=== PATIENT | female | born 1995 | race Caucasian/White ===

== ENCOUNTER 2016-10-07 07:24 | Inpatient (IN) ==
--- NOTE | 2016-10-07 05:20 | OB/GYN History & Physical ---
Date of Encounter: 10/07/16 Time of Encounter: 05:19 Assessment and Plan (1) 40 weeks gestation of Current visit: Yes Status: Acute Pt is a F at 40+2 weeks with History of SVT Presented 4 days ago outpatient, with SVE: 3 cm/75%/-2/vertex SVE on admit this AM: 4%/90%/ballotable History of SVT: [facility] recommends epidural analgesia to prevent increase of catecholamines in event pt enters labor Follows with midwifes as outpatient I examined this patient and my medical decision-making was reviewed with the Resident Physician. I agree with the documented findings, disposition and treatment plan as described except to the extent set forth below. Allan Samson CNM Admit to labor and delivery for labor Routine labor management Patient may have iv pain medication and/or epidural upon request for pain control. GBS negative. Consider AROM for labor augmentation Anticipate vaginal delivery POC per consult with Dr Medrano. (2) Non-stress test reactive Current visit: Yes Status: Acute Will monitor FHT Results pending upon 20-min evaluation (3) Personal history of supraventricular tachycardia Current visit: Yes Status: Acute History of SVT diagnosed 7 years ago, with no syncopal episodes in past Endorses intermittent palpitations Was seen by [facility] for evaluation of SVT - 06/28/16 recommendation by [facility] reviewed: recommendation for epidural analgesia Reviewed 05/19/16 Echocardiogram Impressions- Normal LV systolic function, LVEF 60%. History of Present Illness Chief complaint: Labor Evaluation HPI: Ms. Crane is a 21 year old female at 40 weeks and 2 days who presents to labor and delivery for labor evaluation. Pt and FOB endorse contractions every 5 minutes. Reports active movement. She endorses a light, limited vaginal bleeding episode and vaginal discharge. She denies leakage of fluid and does not believe she has ruptured her membranes. She receives care with midwives as an oupatient. Was seen at outpatient four days ago, was 3/75/-2/ vertex on presentation on 10/03/16 and vertex by US on 09/20/16. Pt has a history of supraventricular tachycardia diagnosed at age 14 prior to wisdom teeth extraction. She feels as if her heart "skips a beat every time I have a contraction". Endorses intermittent palpitation in anterior chest during . [place] dizzy yesterday, which resolved with additional fluid intake. Has never experienced a syncopal episode. No chest pain, SOB, or unexplained diaphoresis during . Pt had a normal EKG 4 weeks prior to this admission, which was normal. She was seen by MFM for SVT, who recommended epidural analgesia. labs: A POSITIVE/GBS Negative/ Heb B Nonreactive/ Rubella Immune/ Varicella IgG positive/ All other serologies negative. Past Med Surg Social Fam HX - Past Medical History Medical history: SVT Psychiatric history: no psych history - Past Surgical History Surgical History: no surgical history - Social History Smoking Status: Never smoker Alcohol use: none Drug use: none - Family History Maternal Grandmother Adopted: No Hx Family Cardiac Disorders: Yes Hx Family Respiratory Disorders: No Hx Family Cancer: No Hx Family GI Disorders: No Hx Family Genitourinary Disorders: No Hx Family Endocrine Disorder: Yes (dm) Hx Family Musculoskeletal Disorders: No Hx Family Neuromuscular Disorders: No Hx Family Neurologic Disorders: No Hx Family HEENT Disorders: No Hx Family Autoimmune Disorders: No Hx Family Reproductive Disorders: No Hx Family Psychosocial Disorders: No Hx Family Medical Disorders: No Obstetrical History - Pregnancies : 1 Para: 0 Medications and Allergies Tablet 1 tab PO DAILY 10/07/16 [History] Allergies Amoxicillin Allergy (Verified 10/07/16 04:15) Rash Penicillins Allergy (Verified 10/07/16 04:15) Rash Exam - Constitutional Constitutional: well developed, well nourished, other (standing upright and pacing, cooperative) - HEENT HEENT: EOMI, Normocephaly - Lungs Respiratory exam: CTAB (accessory muscle use.No wheezes. No respiratory distress. ) - Cardiovascular Cardiovascular exam: RRR - Abdomen Abdomen: Present: gravid, non tender - Cervix Dilation: 4 (performed by RN on intake on admission) Effacement: 90 Station: 0 (ballotable) Results All other labs normal. US - abdomen: report reviewed (06/28/16 Second trimester detailed U/S with transvaginal scan: No anomalies visualized. ), other (05/19/16 Echocardiogram Impressions: Normal LV systolic function, LVEF 60%. Normal left ventricular diastolic function. Normal right ventricular size and function. No significant valvular dysfunction. No evidence of pulmonary hypertension. Left Ventricular Wall Motion: Rest Echo Findings All wall segments showed normal motion. )
[~2016-10-07 07:24] MED LIST: Famotidine 20 MG/2 ML VIAL IVP PRN; Naloxone 0.4 MG/ML INJ IVP PRN
[2016-10-07] MEDS ORDERED: *HR* Nalbuphine 20 MG/ML AMPUL IVP PRN (07:26)
[2016-10-07] MEDS ORDERED: Ringers Solution, Lactated 1,000 ML IVC SCH (07:30)
[2016-10-07] MEDS ORDERED: Ringers Solution, Lactated 1,000 ML ONE (07:35)
[2016-10-07 07:44] LABS: Basophils % 0.2 %; Eosinophils % 0.2 %; Hematocrit 40.7 % (35.3-44.9); Hemoglobin 13.4 g/dL (11.5-15.4); Immature Granulocytes % 0.4 % (0-4); Lymphocytes % 5.9 %; Mean Corpuscular HGB Conc 32.9 g/dL (31.6-35.5); Mean Corpuscular Volume 85.1 fL (83.0-100.0); Mean Platelet Volume 9.5 fL (9.4-12.4); Monocytes # 0.4 K/mcL (0.0-1.3); Monocytes % 2.6 %; Neutrophils # 14.9 K/mcL (1.6-8.9); Platelet Count 245 K/mcL (140-400); Red Blood Count 4.78 M/mcL (3.82-4.97); Red Cell Distribution Width 13.7 % (11.5-14.5); Segmented Neutrophils % 90.7 %
[2016-10-07] MEDS ORDERED: Epidural Premix (fent/bupiv) 110 ML EP ONE (07:50)
--- NOTE | 2016-10-07 08:35 | Anesthesia Evaluation PreOp ---
Date of Encounter: 10/07/16 Time of Encounter: 08:04 - Past History Planned Operation: vaginal del, induction Cardiac History: Arrhythmia, Other (SVT in past no hospitalizations, cardiac workup neg, neg echo per patient. occ Palpatitions during this hopital stay.) Pulmonary History: Denies Any Significant HX FINAL INSPECTOR PAPER History: Denies Any Significant HX Other Medical History: Denies Any Significant HX Anesthesia History: No Prior Anesthetic Complications, Past Anesthesia : Yes (term) Alcohol Use: none Drug use: none Medications and Allergies Tablet 1 tab PO DAILY 10/07/16 [History] Allergies Amoxicillin Allergy (Verified 10/07/16 04:15) Rash Penicillins Allergy (Verified 10/07/16 04:15) Rash Anesthesia Results - Labs 10/07/16 07:32 Anesthesia Exam - HEENT Pupil (Motor): Pupils equal Mallampati: II Teeth: Normal Oral Opening: Greater than 3 - FINAL INSPECTOR PAPER LOC: Oriented FINAL INSPECTOR PAPER Motor: Normal RUE, Normal LUE, Normal RLE, Normal LLE, Normal Face FINAL INSPECTOR PAPER Sensory: Normal: RUE, LUE, RLE, LLE, Face - Cardiac Rhythm: Regular Murmur: None - Pulmonary Breath Sounds: bilateral Clear Respiratory Effort: Symmetrical Anesthesia Assess/Plan ASA Score: 2 Modified Elroy Scale for Level of Consciousness: Cooperative, oriented, and tranquil Anesthetic Plan: General, Regional Monitoring Plan: Standard Monitors Recovery Plan: PACU
--- NOTE | 2016-10-07 08:39 | Anesthesia Procedures ---
Date of Encounter: 10/07/16 Time of Encounter: 08:04 Procedures: Anesthesia - Epidural/Spinal Patient ID/Chart reviewed: Yes Patient examined: Yes OB Eval: Gestational age: term OB Eval: : 1 OB Eval: Dilated at (cm): 5 OB Eval: Contractions: Non-stressed pattern Consent Obtained: Yes Supplemental Oxygen: None/Room Air Site Prep: Aseptic Technique, Sterile prep and drape, 0.5% Chlorhexidine/Alcohol Patient position: upright Local Anesthetic: Lidocaine 1% Amount of Local Anesthetic used: 2 Touhy Needle Gauge: 18 Touhy Needle Depth (cm): 6 Catheter Depth at Skin (cm): 10 Test Dose (1.5% Lido + Epi): Volume given (mls): 3 Test Dose Result: Negative Loading Dose: Other: 12ml from soltution Loading Dose Administered: Thru Catheter Infusion Med: 0.125% Bupivacaine w/ 2 mcg/ml Fentanyl Infusion Rate (mls/hr): [address]: Tegaderm Interspace Used: L3-L4 Loss of Resistance (TARA): Yes (saline) Blood: No CSF: No Paresthesia: No Vitals + FHT's: vss though out, FHR stable per RN's, no SVT during procedure or within 30min post procedure.
--- NOTE | 2016-10-07 08:56 | OB Labor Progress Note ---
Date of Encounter: 10/07/16 Time of Encounter: 08:54 Labor Progress Note - Subjective Subjective: Patient doing well. Resting in bed comfortably after epidural. - Vital Signs Vital Signs: VSS - Cervix Cervix: 7-8/100/-1 - Heart Tones Heart Tones: 140's with moderate variability 15 x 15 accels and no decels. - [place]: contractions every 2-3 minutes palpate firm uterus palpates soft between contractions. - Plan Plan: Continue routine labor management Epidural in place; patient comfortable GBS negative Consider AROM when sutures palpate OA Anticipate vaginal delivery POC per consult with Dr Medrano.
[2016-10-07] MEDS ORDERED: Oxytocin 20 units/ LR 1000 mL 20 UNIT/1,000 ML BAG IVC ONE ×4 (10:21→16:58)
--- NOTE | 2016-10-07 10:47 | OB Labor Progress Note ---
Date of Encounter: 10/07/16 Time of Encounter: 10:45 Labor Progress Note - Subjective Subjective: Patient resting comfortably in bed with epidural in place. - Vital Signs Vital Signs: VSS - Cervix Cervix: 9.5/100/0 - Heart Tones Heart Tones: 140's with moderate variability and 15x15 accels and early decels. - [place]: Every 2-3 minutes - Interventions Interventions: AROM for moderate amount of clear fluid. - Plan Plan: Continue routine labor management GBS negative Epidural in place and patient is comfortable Anticipate vaginal delivery POC per consult with Dr Medrano.
[2016-10-07] MEDS ORDERED: miSOPROStol 100 MCG TABLET RC STA (13:47)
--- NOTE | 2016-10-07 13:47 | OB/GYN Procedure Note ---
Delivery - Delivery Date: 10/07/16 Provider: Lisa Samson Intrapartum events: none Delivery induction: none Delivery augmentation: rupture of membranes Delivery monitor: external FHT, external uterine Anesthesia: epidural Estimated Blood Loss: 350 - Infant (s) Infant A Delivery Date: 10/07/16 Infant Delivery Time: 12:54 Presentation: vertex Position: JOCELYN Route of delivery: Gender: Female Viability: Viable Pounds: 8 Ounces: 0 Weight Gram: 3615 kg at 1 minute: 8 at 5 mins: 8 Shoulder Dystocia: not encountered Specimens collected: venous cord gases, arterial cord gases Placenta: spontaneous Cord: 3 umbilical vessels - Repair Episiotomy: none Laceration Description: Vaginal (repaired right vaginal) - Complications Delivery complications: uterine atony (resolved with massage, pitocin IV, and cytotec [place]) Delivery comments: Patient progressed to complete and began coached pushing. of vigorous viable female in JOCELYN. placed on maternal abdomen and cord clamped and cut when pulsations ceased. No nuchal, no shoulder dystocia, and no meconium encountered. Apgars 8 and 8 at 1 and 5 minutes of age. Placenta delivered spontaneously and appears grossly intact upon inspection with 3 vessel cord. Uterine atony noted after delivery of placenta; resolved with bimanual massage, iv pitocin, and [place] cytotec. Upon vaginal inspection, there was a hemostatic left vaginal wall laceration left to heal by second intention and a right vaginal wall tear that was repaired with 3-0 vicryl in the usual fashion. Upon completion of repair the uterus was firm and 3 fingerbreadths below the uterus with light bleeding. EBL 350. Mother recovering in room. Infant was taken to special care nursery due to grunting and increased work of breathing that began after [address] Medrano notified of delivery. - Disposition Mom disposition: stable in LDR [place] disposition: taken to nursery
[2016-10-07] MEDS ORDERED: Acetaminophen 325 MG TABLET PO PRN (16:58)
[2016-10-07] MEDS ORDERED: Oxytocin 20 units/ LR 1000 mL 20 UNIT/1,000 ML BAG IVC SCH (16:58)
[2016-10-07] MEDS ORDERED: Measles/Mumps/Rubella Vacc 0.5 ML VIAL SQ PRN (16:58)
[2016-10-07] MEDS ORDERED: Ibuprofen 600 MG TABLET PO PRN (16:58)
--- NOTE | 2016-10-08 07:22 | Discharge Summary ---
Date of Encounter: 10/08/16 Time of Encounter: 07:25 - Discharge Diagnosis (1) Vaginal delivery Priority: Primary Status: Acute Comments: Doing well s/p vaginal delivery day 1 Pain is well controlled Lochia is light and without clots Tolerating oral diet Bottom is feeling sore, but normal for post vaginal delivery Urinating and passing flatus without difficulty VSS is going well Discharge home today with (2) Personal history of supraventricular tachycardia Priority: Secondary Status: Acute Comments: No SVT noted while hospitalized for labor, delivery, and . Continue to monitor on outpatient basis with Cardiology (3) 40 weeks gestation of Priority: Secondary Status: Resolved (4) Non-stress test reactive Priority: Secondary Status: Resolved - Discharge Medications Prescriptions: Ibuprofen [Motrin] 600 mg PO Q6HR PRN #60 tab PRN Reason: Mild To Moderate Pain Docusate [Colace] 100 mg PO BID #20 Home Medications: Docusate [Colace] 100 mg PO BID #20 10/08/16 [Rx] Ibuprofen [Motrin] 600 mg PO Q6HR PRN #60 tab 10/08/16 [Rx] Vit/FA 1 each PO DAILY tab 10/08/16 [Rx] Allergies/Adverse Reactions: Allergies Amoxicillin Allergy (Verified 10/07/16 04:15) Rash Penicillins Allergy (Verified 10/07/16 04:15) Rash Data Procedures and tests throughout hospitalization: Laboratory Tests 10/07/16 07:32 WBC 16.5 H RBC 4.78 Hgb 13.4 Hct 40.7 MCV 85.1 MCH 28.0 MCHC 32.9 RDW 13.7 Plt Count 245 MPV 9.5 Immature Gran % 0.4 Seg Neutrophils % 90.7 Lymphocytes % 5.9 Monocytes % 2.6 Eosinophils % 0.2 Basophils % 0.2 Neutrophils # 14.9 H Lymphocytes # 1.0 Monocytes # 0.4 Eosinophils # 0.0 Basophils # 0.0 Labs on day of discharge: Labs from last 24 hours 10/07/16 07:32 WBC 16.5 H RBC 4.78 Hgb 13.4 Hct 40.7 MCV 85.1 MCH 28.0 MCHC 32.9 RDW 13.7 Plt Count 245 MPV 9.5 Immature Gran % 0.4 Seg Neutrophils % 90.7 Lymphocytes % 5.9 Monocytes % 2.6 Eosinophils % 0.2 Basophils % 0.2 Neutrophils # 14.9 H Lymphocytes # 1.0 Monocytes # 0.4 Eosinophils # 0.0 Basophils # 0.0 Date of admission: 10/07/16 07:24 Consults: 10/07/16 16:58 Consult to Professor Of Vegetable Science [CONS] Routine Comment: Vaginal delivery, consult needed Discharging clinician: Lisa Samson Anticipated date of discharge: 10/08/16 - Patient Status Disposition: Home, Self-Care Condition: Good Functional capacity at discharge: independent ambulation Overall status at discharge: patient is progressing back to baseline - Discharge Instructions Follow Up With: Lisa Samson CNM [Advanced Practice Nurse] - - Diet and Activity Activity: increase activity as tolerated Diet: regular diet Hospital Course METAL TECHNICIAN Time Attestation: Total time spent providing and/or coordinating discharge services: Time Spent: Less than 30 minutes Exam - Constitutional Vitals: Temp Pulse Resp BP Pulse Ox 98 F 94 14 99/66 99 10/08/16 03:05 10/08/16 03:05 10/08/16 03:05 10/08/16 03:05 10/08/16 03:05 General appearance IM: cooperative, A&O X 3, pleasant - Respiratory Respiratory exam: Present: CTAB - Cardiovascular Cardiovascular exam IM: Present: RRR, +S1, +S2 - GI/Abdominal GI/Abdominal exam IM: normal bowel sounds, soft - Rectal Rectal exam: deferred - Uterine Tone: Firm Uterus Position: 1 Finger Below Umbilicus, Midline - Extremities Exam Extremities exam IM: Present: normal capillary refill, normal inspection, pedal edema (2+ pedal edema), radial pulses palpable and symetrical - Neurological Exam Neurological exam: alert, oriented X3, reflexes normal - VTE Reasons for not Prescribing Prophylaxis: Treatment not Indicated - Low risk for VTE
[2016-10-08 08:03] VITALS: BP 118/83
[2016-10-08] MEDS ORDERED: NON-FORMULARY MEDICATION 1 EACH EACH (Prenatal Tablet 1 TAB) PO SCH (09:00)
[2016-10-08] MEDS ORDERED: Prenatal Vit/FA 1 EACH TABLET PO SCH (09:00)
== END 2016-10-08 16:13 | disposition home or self-care (01) | DRG 560 ==
LOC: 1NENULAB → 1NENUOBS 15:56
PROVIDERS: ADMIT Advanced Practice Midwife; ATTEND Advanced Practice Midwife

== ENCOUNTER 2021-12-11 15:55 | Inpatient (IN) ==
[~2021-12-11 15:55] MED LIST changes: +Azithromycin 500 MG in 0.9 % Sodium Chloride 250 ML IVPB PRN; +Lidocaine 1% 20 ML MDV INFILT PRN; +Metoclopramide 10 MG/2 ML VIAL IVP PRN; -Naloxone 0.4 MG/ML INJ IVP PRN; +Ondansetron 4 MG/2 ML VIAL IVP PRN; +Ringers Solution, Lactated 1,000 ML ONE
[2021-12-11] MEDS ORDERED: Ringers Solution, Lactated 1,000 ML IVC SCH (16:00)
[2021-12-11] MEDS ORDERED: Ropivacaine/PF 0.2% 20 ML VIAL EP ONE (16:05)
[2021-12-11] MEDS ORDERED: EPHEDrine sulfate 50 MG/10 ML VIAL IVP PRN (16:05)
[2021-12-11] MEDS ORDERED: *HR* FentaNYL (PF) 100 MCG/2 ML VIAL EP ONE (16:05)
[2021-12-11] MEDS ORDERED: Bupivacaine-MPF 0.25% 10 ML VIAL ONE (16:07)
[2021-12-11] MEDS ORDERED: Epidural Premix (fent/bupiv) 110 ML EP SCH (16:15)
[2021-12-11 16:22] LABS: Basophils % 0.3 %; Eosinophils # 0.2 K/mcL (0.0-0.6); Eosinophils % 1.7 %; Hematocrit 39.1 % (35.3-44.9); Hemoglobin 12.6 g/dL (11.5-15.4); Immature Granulocytes % 0.2 % (0-4); Lymphocytes # 1.4 K/mcL (0.6-4.6); Lymphocytes % 15.8 %; Mean Corpuscular HGB Conc 32.2 g/dL (31.6-35.5); Mean Corpuscular Hemoglobin 26.5 pg (28.0-33.3); Mean Corpuscular Volume 82.3 fL (83.0-100.0); Mean Platelet Volume 9.8 fL (9.4-12.4); Monocytes # 0.4 K/mcL (0.0-1.3); Monocytes % 4.8 %; Neutrophils # 6.9 K/mcL (1.6-8.9); Platelet Count 249 K/mcL (140-400); Red Blood Count 4.75 M/mcL (3.82-4.97); Red Cell Distribution Width 17.9 % (11.5-14.5); Segmented Neutrophils % 77.2 %; White Blood Count 8.9 K/mcL (4.3-11.1)
[2021-12-11] MEDS ORDERED: Ondansetron ODT 4 MG TAB.RAPDIS SL PRN (21:12)
[2021-12-11] MEDS ORDERED: Benzocaine/Menthol 56 GM AEROSOL SPRAY TP PRN (21:12)
[2021-12-11] MEDS ORDERED: OXYTOCIN/RINGERS LACTATE 10 UNIT/166.6 ML BAG IVC ONE (21:12)
[2021-12-11] MEDS ORDERED: Measles/Mumps/Rubella Vacc 0.5 ML VIAL SQ PRN (21:12)
[2021-12-11] MEDS ORDERED: Lanolin 7 G OINT...G. TP PRN (21:12)
[2021-12-11] MEDS ORDERED: Oxytocin 30 UNIT/503 ML BAG IVC SCH (21:12)
[2021-12-11] MEDS: Acetaminophen 325 MG TABLET PO SCH (21:36)
[2021-12-11] MEDS: Ibuprofen 600 MG TABLET PO SCH (23:20)
[2021-12-12] MEDS: Ibuprofen 600 MG TABLET PO SCH ×2 (04:27→16:55)
[2021-12-12] MEDS: Acetaminophen 325 MG TABLET PO SCH ×2 (04:28→16:56)
[2021-12-12] MEDS: Prenatal Vit/FA 1 EACH TABLET PO SCH (09:01)
[2021-12-12 16:10] VITALS: O2SAT 98
[2021-12-13 07:31] VITALS: BP 101/68; PULSE 69; TEMP 97.9
[2021-12-13] MEDS: Prenatal Vit/FA 1 EACH TABLET PO SCH (09:56)
== END 2021-12-13 10:00 | disposition home or self-care (01) | DRG 560 ==
LOC: 1NENULAB → 1NENUOBS 20:50
PROVIDERS: ADMIT Registered Nurse; ATTEND Registered Nurse